=== PATIENT | female | born 1995 | race Caucasian/White ===

== ENCOUNTER 2018-06-09 12:32 | Emergency (ER) | payer OTHER ==
[2018-06-09 14:30] LABS: ADD MAN DIFF? NO
[2018-06-09 14:31] LABS: WHITE BLOOD COUNT 9.4 10^3/ul (4.8-10.8)
[2018-06-09 14:31] LABS: BASOPHILS % 0.4 % (0.0-2.0); EOSINOPHILS # 0.1 10^3/ul (0.0-0.5); EOSINOPHILS % 0.5 % (0.0-7.0); HEMATOCRIT 41.4 % (37.0-47.0); HEMOGLOBIN 13.2 g/dl (12.0-16.0); LYMPHOCYTES # 2.4 10^3/ul (0.8-2.9); LYMPHOCYTES % 25.5 % (15.0-51.0); MEAN CORPUSCULAR HEMOGLOBIN 25.5 pg (29.0-33.0); MEAN CORPUSCULAR HGB CONC 31.9 g/dl (32.0-37.0); MEAN CORPUSCULAR VOLUME 79.9 fl (82.0-101.0); MONOCYTE # 0.8 10^3/ul (0.3-0.9); MONOCYTES % 8.2 % (0.0-11.0); NEUTROPHIL # 6.1 10^3/ul (1.6-7.5); NEUTROPHILS % 65.1 % (39.0-77.0); PLATELET COUNT 245 10^3/UL (140-415); RED BLOOD COUNT 5.18 10^6/ul (4.20-5.40); RED CELL DISTRIBUTION WIDTH 13.9 % (11.5-14.5)
[2018-06-09 14:37] LABS: ADD UMIC YES; UR ASCORBIC ACID NEGATIVE (NEGATIVE); UR BACTERIA FEW /HPF (NONE SEEN); UR BILIRUBIN (Dip) NEGATIVE (NEGATIVE); UR BLOOD (Dip) NEGATIVE (NEGATIVE); UR CLARITY CLOUDY (CLEAR); UR COLOR YELLOW (YELLOW); UR GLUCOSE (Dip) NEGATIVE (NEGATIVE); UR KETONES (Dip) NEGATIVE (NEGATIVE); UR LEUKOCYTE ESTERASE (Dip) 1+ Leu/ul (NEGATIVE); UR MUCUS FEW /HPF (NONE SEEN); UR NITRITE (Dip) NEGATIVE (NEGATIVE); UR RBC 7 /HPF (0-5); UR SPECIFIC GRAVITY (Dip) 1.021 (1.003-1.030); UR SQUAMOUS EPITHELIAL CELL MODERATE /HPF (FEW); UR TOTAL PROTEIN (Dip) NEGATIVE (NEGATIVE); UR UROBILINOGEN (Dip) 1+ mg/dL (NEGATIVE); UR WBC 8 /HPF (0-5)
[2018-06-09] MEDS: KETOROLAC 30 MG INJ IM (14:37)
[2018-06-09] MEDS: ACETAMINOPHEN 500 MG TAB PO (14:37)
[2018-06-09 14:57] LABS: ANION GAP 10 (5-13); CARBON DIOXIDE 25 mmol/L (21-31); CHLORIDE 106 mmol/L (97-110); Estimated GFR > 60 mL/min (>60); POTASSIUM 4.2 mmol/L (3.5-5.1); SODIUM 141 mmol/L (135-144)
[2018-06-09] MEDS: HYDROCODONE/APAP (5/325) TAB PO (15:07)
[2018-06-09] MEDS: CEPHALEXIN 500 MG CAP PO (15:07)
[2018-06-09 15:08] LABS: ALANINE AMINOTRANSFERASE 50 IU/L (13-69); ALBUMIN 4.3 g/dl (3.3-4.9); ALKALINE PHOSPHATASE 93 IU/L (42-121); ASPARTATE AMINO TRANSFERASE 28 IU/L (15-46); BILIRUBIN,INDIRECT 0.3 mg/dl (0-1.1); BILIRUBIN,TOTAL 0.3 mg/dl (0.2-1.3); BLOOD UREA NITROGEN 11 mg/dl (7-20); CALCIUM 9.5 mg/dl (8.4-10.2); CREATININE 0.68 mg/dl (0.44-1.00); GLUCOSE 110 mg/dl (70-220); LIPASE 95 U/L (23-300); TOTAL PROTEIN 7.6 g/dl (6.1-8.1)
== END 2018-06-09 16:14 | disposition home or self-care (01) ==
LOC: FTE 12:32
DX: N83.201 Unspecified ovarian cyst, right side (principal); J45.909 Unspecified asthma, uncomplicated
CPT/HCPCS: 36415; 76856; 80053; 81001; 81025; 83690; 85025; 96372; 99285-25